=== PATIENT | male | born 1995 | race Caucasian/White ===

== ENCOUNTER 2016-09-19 11:32 | Emergency (ER) | payer BC ==
--- NOTE | ~2016-09-19 | ER ---
PATIENT'S NAME: MARTIN SANTIZO [facility] AGE: 21 Y [address] ROOM: [place] [id number] LOCATION: [facility] ADMIT DATE: 09/19/2016 ER/Outpatient Report DISCHARGE DATE: 09/19/2016 FAMILY PHYSICIAN: PHYSICIAN, NO ATTENDING PHYSICIAN: Zack Dillard Time of arrival: 1133 hours. Time of evaluation: 1133 hours. CHIEF COMPLAINT: Right thumb laceration. HISTORY OF PRESENT ILLNESS: The patient is a 21-year-old male, who presents to the emergency department today with chief complaint right thumb laceration. He reports that it occurred about 15 minutes prior to arrival. He reports he was using a knife, it was a clean blade when he cut his right thumb. He has sharp pain. It is mild in severity. PAST MEDICAL HISTORY: None. PAST SURGICAL HISTORY: Labrum and left knee. SOCIAL HISTORY: The patient denies any tobacco use. Reports occasional alcohol use. Denies any illicit drug use. ALLERGIES: NO KNOWN DRUG ALLERGIES. MEDICATIONS: None. REVIEW OF SYSTEMS: All systems are reviewed by myself and negative with the exception of those discussed in HPI and past medical history. PHYSICAL EXAMINATION: VITAL SIGNS: Weight 120.8 kg, blood pressure 141/80, pulse 74, respiratory rate 16, temperature 98, oxygen saturation 98% on room air. GENERAL: The patient is a 21-year-old male, who appears of stated age, in no acute distress at this time. HEENT: Normocephalic and atraumatic. Pupils are equal, round, and reactive PATIENT'S NAME: MARTIN SANTIZO [facility] AGE: 21 Y [address] ROOM: [place] [id number] LOCATION: [facility] ADMIT DATE: 09/19/2016 ER/Outpatient Report DISCHARGE DATE: 09/19/2016 FAMILY PHYSICIAN: PHYSICIAN, NO ATTENDING PHYSICIAN: Zack Dillard to light. NECK: Supple. There is no nuchal rigidity. CARDIOVASCULAR: Regular rate and rhythm. No murmurs, rubs, or gallops. LUNGS: Clear to auscultation bilaterally. No wheezes, rales, or rhonchi. ABDOMEN: Soft, nontender, and nondistended. No rebound, rigidity, or guarding. MUSCULOSKELETAL: The patient moves all 4 extremities. He does have full range of motion of his right thumb. SKIN: The patient does have a 1.6 cm laceration over the IP joint of the right thumb. IMPRESSION: 1. A 1.6 cm laceration over the dorsal aspect of the IP joint of the right thumb with tissue adhesive repair. 2. Initial visit. EMERGENCY DEPARTMENT COURSE: The patient brought back to the examination room. Seen and evaluated by myself. The patient's thumb laceration is copiously irrigated with soap and water. The wound is explored. I see no evidence of tendinous involvement. There is no evidence of foreign body noted. Tissue adhesive is used to close the wound. The patient is placed in a splint. I have recommended maintain the splint for 10 to 14 days to allow for healing. I have discussed wound care. I have discussed return to care instructions including worsening symptoms or any other concerns to return to the emergency department as soon as possible. The patient is agreeable without further questions at this time. DISPOSITION: The patient is discharged to home in good condition. DO MARILOU JAVIER/modl /[id number] d: 09/19/16 1419 t: 09/19/16 1610, OUTPATIENT REPORT
== END 2016-09-19 12:07 | disposition disaster alternative care site (69) ==
LOC: GACC 11:32
PROC: 0HQFXZZ Repair Right Hand Skin, External Approach (ICD-10-PCS; principal; 2016-09-19)
DX: S61.011A Laceration without foreign body of right thumb without damage to nail, initial encounter (principal); W26.0XXA Contact with knife, initial encounter